=== PATIENT | female | born 1990 | race Caucasian/White ===

== ENCOUNTER 2017-04-30 13:08 | Emergency (ER) | payer OTHER ==
--- NOTE | 2017-04-30 13:47 | ERNOTE ---
Upper Extremity HPI - General Time Seen by Provider: 04/30/17 13:16 Source: patient Exam Limitations: no limitations - Immun/Allergies/Home Medications Immunizations: IMMUNIZATION HX Immunizations Up to Date Yes History of Influenza Vaccine Yes Hx Pneumococcal Vaccination Yes Allergies/Adverse Reactions: Allergies Allergy/AdvReac Type Severity Reaction Status Date / Time codeine Allergy Verified 04/30/17 13:23 Home Medications: HOME MEDICATIONS Levothyroxine Sodium [Levoxyl] 200 mcg PO DAILY 12/20/15 [Last Taken Unknown] Ibuprofen [Motrin] 800 mg PO TID PRN #30 tablet 04/30/17 [Last Taken Unknown] - History of Present Illness Narrative: slammed hand in door at work two hours ago and has pain on the back of right hand Review of Systems - Review of Systems Constitutional: Present: no symptoms reported EYE: Present: no symptoms reported ENT: Present: no symptoms reported Respiratory: Present: no symptoms reported Cardiology: Present: no symptoms reported Gastrointestinal/Abdominal: Present: no symptoms reported Genitourinary: Present: no symptoms reported Musculoskeletal: Present: See HPI - Patient's Past Medical History Patient History - Medical: Anxiety, Arthritis, Depression, Hypothyroidism Patient History - Cardiac/Respiratory: Hypertension Patient History - Cancer: No Hx of Cancer Patient History - Surgical Procedures: , T & A, Other Patient History - Other: None LMP (females 10-50): 1 month - Social History Living Situations: home Abuse History: No History of abuse Psych History: Hx of Anxiety, Hx of Depression Smoking Status: Never smoker Drug Use: none - Immunizations Immunizations Up to Date: Yes Hx Pneumococcal Vaccination: Yes History of Influenza Vaccine: Yes Physical Exam - Physical Exam General Appearance: Present: wd/wn, alert, no apparent distress Respiratory: Present: no respiratory distress, normal breath sounds, no accessory muscle use, chest nontender, lungs clear Cardiovascular/Chest: Present: regular rate, rhythm, no murmur, normal peripheral pulses Extremity Exam: Present: normal inspection, other - no swelling deformity or ecchymosis noted. Patient is well able to wiggle fingers she is slightly tender upon palpation of the dorsal aspect of the right hand in the area of the metacarpophalangeal joints. Neurological Exam: Present: alert, oriented, normal mood/affect ED Progress - Vital Signs Patient's Vital Signs:: I have reviewed the patient's vital signs. Vital Signs: Vital Signs 04/30/17 13:15 Temperature 36.9 C Pulse Rate 79 Respiratory 14 Rate Blood Pressure 141/91 O2 Sat by Pulse 100 Oximetry - X-Ray X-Ray #1 X-Ray: hand - Progress/Reassessment Chief Complaint: Hand Injury/Pain Plan - Plan Plan: I do not see an obvious fracture on this x-ray. Patient will be treated for contusion Departure Clinical Impression: Contusion of hand, right Qualifiers: Encounter type: initial encounter Qualified Code(s): S60.221A - Contusion of right hand, initial encounter - Departure Disposition: Home self-care Condition: Good Instructions: Contusion, [place] Prescriptions: Ibuprofen [Motrin] 800 mg PO TID PRN #30 tablet PRN Reason: Pain
[2017-04-30 16:04] VITALS: BP 132/88
== END 2017-04-30 14:35 | disposition home or self-care (01) ==
LOC: ER 13:08
DX: S60.221A Contusion of right hand, initial encounter (principal); W23.0XXA Caught, crushed, jammed, or pinched between moving objects, initial encounter; Y92.89 Other specified places as the place of occurrence of the external cause; Y99.0 Civilian activity done for income or pay; E03.9 Hypothyroidism, unspecified